=== PATIENT | male | born 1945 | race African-American/Black ===

== ENCOUNTER 2021-07-04 10:35 | Emergency (ER) | payer BC, OTHER ==
[2021-07-05 07:41] LABS: SARS-CoV-2 PCR by NAA Not Detected (NotDetected)
== END 2021-07-04 11:47 | disposition home or self-care (01) ==
LOC: ERS 10:35
DX: R09.81 Nasal congestion (principal); K21.9 Gastro-esophageal reflux disease without esophagitis; Z20.822 Contact with and (suspected) exposure to COVID-19
CPT/HCPCS: 99283; U0003; U0005